=== PATIENT | female | born 1990 ===

== ENCOUNTER 2020-10-08 20:58 | Outpatient (REF) | payer MEDICAID, SELFPAY ==
[2020-10-11 17:35] LABS: Patient Race White; SARS-CoV-2 RNA Undetected (Undetected); SARS-CoV-2 Specimen Source Nasal
== END 2020-10-08 21:18 ==
LOC: NCHCN 20:58
PROVIDERS: PCP Family Medicine; Visit Provider Family Medicine
DX: Z20.828 Contact with and (suspected) exposure to other viral communicable diseases (principal)
CPT/HCPCS: U0003